=== PATIENT | male | born 1965 | race African-American/Black ===

== ENCOUNTER 2023-08-19 18:26 | Inpatient (IN) | payer OTHER, SELFPAY ==
[2023-08-19] VITALS (7 sets, daily range): BP systolic 125–155; BP diastolic 67–132; BMI 16.8; BMI 16.6
--- NOTE | 2023-08-19 16:30 | ED.GENMED ---
History of Present Illness
General
Chief Complaint: Skin Problem
Time Seen by Provider: 08/19/23 16:29
History of Present Illness
History of Present Illness:
HPI: Patient came in by ambulance. He had been staying at some [facility] called [facility] and then was transferred to [facility]. They noted him to have foul-smelling wounds to the lower extremities. He has a history of
IVDA including heroin, meth, and tranq. He has not had any fevers. He denies diabetes.
EXAM:
GENERAL: Appears poorly groomed
HEENT: Moist oral mucosa
CARDIOVASCULAR: No murmurs, normal heart rate, regular rhythm, No chest wall tenderness
PULMONARY: No respiratory distress, breath sounds are clear and equal
ABDOMEN: Soft with no peritoneal signs, no tenderness
NEUROLOGIC: Excellent strength all extremities, no coordination deficits
PSYCHIATRIC: Appropriate mental status, normal insight and judgement
EXTREMITIES: The patient has markedly foul-smelling wounds with purulent drainage to the distal lower extremities. I was unable to palpate DP pulses but the DP pulses are dopplerable.
TIME OF INITIAL ENCOUNTER: 4:45 PM
NUMBER AND COMPLEXITY OF PROBLEMS ADDRESSED AT THE ENCOUNTER
� Chronic conditions affecting care: Denies diabetes, denies any significant past medical history, IVDA
� Acute Exacerbation and/or Progression of Chronic Illness: This is a subacute problem
� Differential Diagnosis includes: Wound infection, poorly healing wound, undiagnosed diabetes, sepsis
AMOUNT AND/OR COMPLEXITY OF DATA TO BE REVIEWED AND ANALYZED
� I performed an independent evaluation of and my interpretation is:
EKG:
CT:
X-rays:
Laboratory Studies: White count 4.4, hemoglobin 9.9, chemistries relatively unremarkable however low albumin noted
Other:
� Review of other/old records: No old records available for review in [facility]
� Clinical information was obtained by an independent historian: I spoke to [facility] officers at bedside
� Prescriptions/Medications Considered but not given:
� Further testing considered but not performed:
RISK OF COMPLICATIONS AND/OR MORBIDITY OR MORTALITY OF PATIENT MANAGEMENT
� Social determinants of health affecting care: Was supposed to be stay at [facility]
� Discussion with other providers:
� Escalation of care including admission/observation vs risk of discharge considered: The patient is poorly groomed/disheveled with markedly foul-smelling odors to the lower extremities open wounds with purulent drainage. Will
admit for IV antibiotics.
Phy Exam
Physical Exam
Physical Exam:
See HPI
Course
Orders/Labs/Results
Orders:
Orders
08/19/23 16:32
Electrocardiogram (*1) Urgent
Reason for Study: Bradycardia / Tachycardia
EKG- Treatment ONCE
08/19/23 16:33
Complete Blood Count/With Diff Urgent
Comprehensive Metabolic Panel Urgent
Lactic Acid Urgent
08/19/23 16:57
Wound Culture [Wound/Abscess/Other Culture] Urgent
MELANIE Source: Leg
Specimen Description: Right
Date Specimen was Collected: 08/19/23
Time Specimen was Collected: 16:55
08/19/23 17:19
Piperacillin/Tazo 3.375 Gram [Zosyn] 3.375 gram in 50 ml IV NOW
08/19/23 17:48
Admit/Transfer Patient As Directed
Co-Sign Provider:
Level of Care: Inpatient admission
Assign to:: Medical/Surgical
Physician / Group: armando
Diagnosis: lower extremity wounds
Reason for Hospitalization: lower extremity wounds
Expected length of stay greater than two midnights?: Yes
ELOS- Estimated Length of Stay in days: 2
I certify the patient meets the requirements for IP care: Yes
Code Status As Directed
Resuscitation Status: Full Code
08/19/23 17:51
Buprenorphine [Subutex] 4 mg SL Q4HPRN PRN
08/19/23 18:00
VANCOMYCIN Pharmacy to Dose [VANCOCIN Pharmacy to Dose] 1 each Pharmacy To Prepare [Call Pharmacy To Prepare] 0 ml IV PER PROTOCOL
08/20/23 08:00
Buprenorphine [Subutex] 4 mg SL ONCE PRN PRN
Buprenorphine [Subutex] See Dose Instructions SL ONCE ONE
08/21/23 08:00
Buprenorphine [Subutex] See Dose Instructions SL DAILY
Abnormal Lab Results
08/19/23
16:33
WBC 4.4 L 10^3/uL
(4.8-10.8)
RBC 3.89 L 10^6/uL
(4.70-6.10)
Hgb 9.9 L g/dL
(13.0-18.0)
Hct 31.5 L %
(39.0-52.0)
MCH 25.4 L pg
(27.0-31.0)
MCHC 31.4 L g/dL
(33.0-37.0)
RDW 17.1 H %
(11.5-14.5)
Plt Count 427 H 10^3/uL
(130-400)
Carbon Dioxide 31 H mmol/L
(22-30)
AST 16 L U/L
(17-59)
Albumin 3.4 L g/dl
(3.5-5.0)
08/19/23 16:33
08/19/23 16:33
Vital Signs
Initial and Last Documented VS:
Initial Vital Signs
Temp Pulse Resp BP Pulse Ox
99 F 62 15 126/73 100
08/19/23 16:25 08/19/23 16:25 08/19/23 16:25 08/19/23 16:25 08/19/23 16:25
Last Documented Vital Signs
Temp Pulse Resp BP Pulse Ox
99 F 71 17 155/132 100
08/19/23 16:25 08/19/23 18:30 08/19/23 18:30 08/19/23 17:00 08/19/23 17:30
*Critical Care Note
Total Time (30-74mins, 75-104mins- exclusive of procedures): Not Applicable
ED Attending Note
-
Portions of this chart may have been created with voice recognition software.� Occasional wrong word or��sound alike� substitutions may have occurred due to the inherent limitations of voice recognition software.
Discharge Plan
Departure
Patient Disposition: Admit
Date of Disposition: 08/19/23
Time of Disposition: 17:24
Presentation/result/management discussed w/ accepting MD/DO: Hospitalist
Patient with high blood pressure during this ER visit?: Yes
Discharge Problem:
Wound infection
Interventions
Interventions:
*Risk Screen - Suicide Last Done: 08/19/23 16:25
*General Assessment Last Done: 08/19/23 16:25
*Neglect/Abuse Screening Last Done: 08/19/23 16:25
ED-Skin Assessment Last Done: 08/19/23 17:18
[2023-08-19 16:40] LABS: % Basophils 0.5 % (0-2); % Eosinophils 0.9 % (0-6); % Immature Granulocytes 0.5 % (0-0.5); % Lymphocytes 35.2 % (20.5-51.1); % Monocytes 7.4 % (1.7-9.3); % Neutrophils 55.5 % (42.2-75.2); Absolute Lymphocytes 1.6 10^3/uL (1.2-3.4); Absolute Monocytes 0.3 10^3/uL (0.1-0.6); Absolute Neutrophils 2.5 10^3/uL (1.4-6.5); Hematocrit 31.5 % (39.0-52.0); Hemoglobin 9.9 g/dL (13.0-18.0); Mean Corp Hgb Conc. 31.4 g/dL (33.0-37.0); Mean Corpuscular Hgb 25.4 pg (27.0-31.0); Mean Platelet Volume 8.6 fL (7.4-10.4); Nucleated Red Blood Cells % 0 % (-); Platelet Count 427 10^3/uL (130-400); Red Blood Cell Count 3.89 10^6/uL (4.70-6.10); Red Cell Dist. Width 17.1 % (11.5-14.5); White Blood Cell Count 4.4 10^3/uL (4.8-10.8)
[2023-08-19 16:55] LABS: Lactic Acid 1.3 mmol/L (0.7-2.0)
[2023-08-19 16:56] LABS: ALT (SGPT) < 10 U/L (0-50); AST (SGOT) 16 U/L (17-59); Albumin 3.4 g/dl (3.5-5.0); Alkaline Phosphatase 70 U/L (38-126); Blood Urea Nitrogen 19 mg/dl (9-20); Calcium 9.1 mg/dl (8.4-10.2); Carbon Dioxide 31 mmol/L (22-30); Chloride 101 mmol/L (98-107); Glucose 96 mg/dl (70-99); Potassium 4.5 mmol/L (3.5-5.1); Sodium 136 mmol/L (135-145); Total Bilirubin 0.2 mg/dl (0.2-1.3); Total Protein 7.3 g/dl (6.3-8.2); eGFR > 60.00
[2023-08-19] MEDS: ZOSYN 50 IV ×2 (17:30→23:08)
--- NOTE | 2023-08-19 17:51 | HPS.HSE ---
Family Physician
-
Family Physician:
Chief Complaint
-
lower extremity wounds
History of Present Illness
58-year-old male history of drug abuse with smoking heroin, methamphetamine, cocaine presenting from [facility] for foul-smelling wounds of the lower extremities. He states that he has had these wounds for 2 to 3 months with
drainage of purulent material. He has been having chills.
He denies history of IV drug use. He smokes heroin, methamphetamine, cocaine and the last time he used drugs was a week ago. He is a former smoker. He denies alcohol or benzodiazepines. He denies taking any tranquilizers knowingly.
He complains of some nausea, congestion, cough and fatigue. He last smoked opiates/cocaine a week ago. He is supposed to be on Suboxone but he does not know the dosage.
He had prior hip surgery.
Medical History
Past Medical History
Past Medical History: Reports Other (drug abuse with smoking heroin, methamphetamine, cocaine)
Past Surgical History: Reports Orthopedic
Social History
Tobacco: Former Smoker
Alcohol: None
Drug: Cocaine and Narcotics
Family History
Family History: Not pertinent
Allergies / Home Medications
Allergies reflects when Allergies were last updated in [employer].
Home Medications with original date entered in [employer]
Allergy/Medication List:
Allergies
Allergy/AdvReac Type Severity Reaction Status Date / Time
fish derived Allergy Unknown Unknown Verified 08/19/23 16:31
peanut Allergy Unknown Unknown Verified 08/19/23 16:31
Home Medications
No Meds [No Current Medications] 08/19/23
Review of Systems
-
History Source: Patient
A 12 point ROS was completed and negative except as noted: Yes
Constitutional: Reports No Symptoms
EENT: Reports No Symptoms
Respiratory: Reports No Symptoms
Cardiac: Reports No Symptoms
Abdomen/GI: Reports No Symptoms
: Reports No Symptoms
Musculoskeletal: Reports No Symptoms
Skin: Reports No Symptoms
Neurological: Reports No Symptoms
Endocrine: Reports No Symptoms
Hematologic/Lymphatic: Reports No Symptoms
Psych: Reports No Symptoms
Physical Exam
Vital Signs
Vital Signs
Temp Pulse Resp BP Pulse Ox
99 F 65 19 155/132 100
08/19/23 16:25 08/19/23 17:15 08/19/23 17:15 08/19/23 17:00 08/19/23 17:15
Physical Exam
General: Well Developed, Well Nourished and No Apparent Distress
HEENT: NormoCephalic, Moist mucous membranes and Atraumatic
Respiratory: Clear
Cardiac: S1/S2 and Regular Rhythm; No Murmur or Rub
GI: Soft, Non Tender, Non Distended and Normal Bowel Sounds; No Organomegaly
Rectal: Deferred by Provider
Musculoskeletal: No Clubbing, No Cyanosis and No Edema
Skin: No Rash
Neuro: Nonfocal/grossly intact
Laboratory Results
-
08/19/23 16:33
08/19/23 16:33
Laboratory Results
Lactic Acid 1.3 mmol/L (0.7-2.0) 08/19/23 16:33
Total Bilirubin 0.2 mg/dl (0.2-1.3) 08/19/23 16:33
AST 16 U/L (17-59) L 08/19/23 16:33
ALT < 10 U/L (0-50) 08/19/23 16:33
Alkaline Phosphatase 70 U/L (38-126) 08/19/23 16:33
Data Reviewed
-
Lab Data: Labs Reviewed by me
Old Records: Reviewed
Impression/Plan
-
IMPRESSION:
PLAN:
# Likely xylazine induced infected lower extremity wounds
-Wound culture pending
-Vancomycin/Zosyn
-Wound care consulted
-General surgery consulted for potential surgical debridement
# Possible mild opiate withdrawal
# History of drug abuse with heroin, methamphetamines, tranquilizers
-Patient normally on Suboxone however dose unknown
-Opiate withdrawal protocol
Leukopenia unknown chronicity
-Continue to monitor
Anemia unknown chronicity
-Continue to monitor
Full code
DVT prophylaxis heparin
Regular diet
[2023-08-19] MEDS: VANCOCIN 300 MG IV (19:53)
[2023-08-19] MEDS: VANCOCIN 300 ML IV (19:53)
--- NOTE | 2023-08-19 20:37 | PHA.VAN.IN ---
Assessment
- Assessment
Renal Function: Unknown baseline
Concomitant Antimicrobials: ZOSYN
- Previous Dosing Experience
Previous Regimen: NONE
AUC Dosing Plan
- Dosing Variables
Dosing Weight (kg): 79.9
Dosing CrCl (ml/min): 100
Vd coefficient (L/kg): 0.7
- Empiric Dosing
Initial / Loading Dose: 1500MG
Maintenance Regimen: 1250MG IV Q12H
Estimated AUC (mcg*h/mL): 545
Estimated Peak (mcg*h/mL): 34.4
Estimated Trough (mcg/ml): 13.7
Estimated Half Life (H): 7.9
Pharmacokinetics Vancomycin I
- -
Patient Age: 58
Patient Sex: Male
Vancomycin Day #: 1
Indication: Skin And Soft Tissue (LE WOUNDS)
Requesting Provider: JACOB
Height / Weight:
Height 6 ft 1 in
Actual Weight 56.926 kg
IBW in k.9
Pertinent Past Medical History: HX DRUG ABUSE
- Vital Signs / Lab Results
Temp Pulse Resp BP Pulse Ox
97.9 F 69 16 130/73 100
08/19/23 19:23 08/19/23 19:23 08/19/23 19:23 08/19/23 19:23 08/19/23 19:23
Lab Results - Hematology
08/19/23
16:33
WBC 4.4 L
Lab Results - Chemistry
08/19/23
16:33
BUN 19
Creatinine 0.7
Albumin 3.4 L
08/19/23
16:33
Lactic Acid 1.3
Microbiology Results
08/19/23 16:57 Gram Stain - Preliminary
Leg - Right
[2023-08-19] MEDS: HEPARIN 5000 UNITS SC (21:03)
[2023-08-20] MEDS: ZOSYN 50 IV ×3 (05:25→18:34)
[2023-08-20] MEDS: VANCOCIN 275 MG IV ×2 (05:32→17:04)
[2023-08-20 07:00] VITALS: BP 125/82
[2023-08-20] MEDS: HEPARIN 5000 UNITS SC ×2 (08:32→19:36)
--- NOTE | 2023-08-20 09:26 | W.PN.HOSP.TC ---
Addendum entered and electronically signed by Porter More MD 08/20/23 23:28:
Attending Addendum-
I saw and evaluated the patient. I reviewed the resident�s note and agree with findings and plan as documented in the resident�s note. Sub: patient complains of sig pain in b/l LE. tearing op. Full 12 point ROS reviewed and negative except as
documented Exam: Vitals reviewed in chart GEN-mild distress heart RRR lungs clear abd soft Ext-Left lower extremity over the medial tibial area there is a area of granulation tissue without devitalized tissue or necrosis and no surrounding
cellulitis, right medial thigh there are multiple oval-shaped granulating wounds without purulence, necrosis or cellulitis In the right medial tibial region there are multiple smaller open wounds with purulence and sloughing but no fluctuance. 2+
palpable bilateral DP PT pulses
# Likely xylazine induced infected lower extremity wounds
-Wound culture - GBS and GNB - await sensitivities
-Vancomycin/Zosyn day # 2
-Anaerobic wound cx sent 08/19- follow closely
-Wound care on board
-General surgery input appreciated- no indication for surgical debridement
# Possible mild opiate withdrawal
- PDMP checked
- last script suboxone 8mg given 08/02 x 7 days
- start Subutex 8mg PO TID
- f/u suboxone clinic as OP
-
# History of drug abuse with heroin, methamphetamines, tranquilizers
-Patient normally on Suboxone
-Opiate withdrawal protocol (COWS)
- start subutex per previous dose
- check hep c ab
Leukopenia unknown chronicity
-Continue to monitor
- repeat CBC in am
Anemia unknown chronicity
-Continue to monitor
Full code
DVT prophylaxis heparin
Regular diet
Time spent coordinating care, review of plan of care with resident, personally reviewed records in EMR, med rec, consults, notes, labs, radiology, d/w nursing � 56 mins
Original Note:
Today's Communication/Plan
-
- Continue Vanco/zosyn
- Oxy�APAP 5/325 Q8 as needed for pain
Assessment / Plan
Assessment / Plan
PLAN:
# Likely xylazine induced infected b/l lower extremity wounds
-Wound culture + group G Streptococcus, gram-negative bacilli
-MRSA pending
-Continue vancomycin/Zosyn
-Wound care consulted
-Hep C antibody, pending
-UDS negative
-Anaerobic culture pending
-Surgery recommended against debridement at this time
# Possible mild opiate withdrawal
- History of drug abuse with heroin, methamphetamines, tranquilizers
- Opiate withdrawal protocol
Leukopenia unknown chronicity
-Continue to monitor
Anemia unknown chronicity
-Continue to monitor
Full code
DVT prophylaxis heparin
Regular diet
Anticipated Discharge: 24 - 48 hours
Subjective/Interval History
-
Date of Service: August 20, 2023
Objective Data
-
Labs:
Laboratory Results
08/20/23
06:00
WBC Pending
Hgb Pending
Hct Pending
Plt Count Pending
Sodium Pending
Potassium Pending
Chloride Pending
Carbon Dioxide Pending
BUN Pending
Creatinine Pending
Glucose Pending
Calcium Pending
Total Bilirubin Pending
AST Pending
ALT Pending
Alkaline Phosphatase Pending
Vital Signs:
Vital Signs
Temp Pulse Resp BP Pulse Ox
98.3 F 62 16 125/82 98
08/20/23 07:00 08/20/23 07:00 08/20/23 07:00 08/20/23 07:00 08/20/23 07:00
I&O
08/19/23 08/20/23 08/21/23
06:59 06:59 06:59
Intake Total 1395 / 1395
Output Total 1300 / 1300
Balance 95 / 95
Review of Systems
-
History Source: Patient
Constitutional: Denies Fever
Respiratory: Denies Cough
Cardiac: Denies Chest Pain
Abdomen/GI: Denies Abdominal Pain
Musculoskeletal: Denies Joint Pain
Physical Exam
-
General: Appears in Distress and Appears Chronically Ill
HEENT: Atraumatic
Respiratory: Clear to Auscultation
Cardiac: Regular Rhythm and S1/S2
Musculoskeletal: Other (chronic wounds on both LE)
Neuro: Awake and Oriented
Psych: Calm
Data Reviewed
-
Labs: Labs Reviewed by me and Discussed with Physician
[2023-08-20 10:15] LABS: % Basophils 0.4 % (0-2); % Eosinophils 0.7 % (0-6); % Immature Granulocytes 0.4 % (0-0.5); % Lymphocytes 37.7 % (20.5-51.1); % Neutrophils 51.8 % (42.2-75.2); Absolute Lymphocytes 1.7 10^3/uL (1.2-3.4); Absolute Monocytes 0.4 10^3/uL (0.1-0.6); Absolute Neutrophils 2.4 10^3/uL (1.4-6.5); Hematocrit 31.2 % (39.0-52.0); Hemoglobin 10.2 g/dL (13.0-18.0); Mean Corp Hgb Conc. 32.7 g/dL (33.0-37.0); Mean Corpuscular Hgb 25.4 pg (27.0-31.0); Mean Corpuscular Volume 77.8 fL (80.0-94.0); Mean Platelet Volume 8.5 fL (7.4-10.4); Nucleated Red Blood Cells % 0 % (-); Platelet Count 484 10^3/uL (130-400); Red Blood Cell Count 4.01 10^6/uL (4.70-6.10); Red Cell Dist. Width 17.2 % (11.5-14.5); White Blood Cell Count 4.6 10^3/uL (4.8-10.8)
[2023-08-20 11:09] LABS: ALT (SGPT) < 10 U/L (0-50); AST (SGOT) 16 U/L (17-59); Albumin 3.2 g/dl (3.5-5.0); Alkaline Phosphatase 75 U/L (38-126); Blood Urea Nitrogen 13 mg/dl (9-20); Carbon Dioxide 27 mmol/L (22-30); Chloride 99 mmol/L (98-107); Estimated Creatinine Clearance 91 ml/min; Glucose 106 mg/dl (70-99); Potassium 4.4 mmol/L (3.5-5.1); Sodium 132 mmol/L (135-145); Total Bilirubin 0.2 mg/dl (0.2-1.3); Total Protein 7.2 g/dl (6.3-8.2); eGFR > 60.00
--- NOTE | 2023-08-20 12:06 | CON.GS ---
Addendum entered and electronically signed by Bj Christina MD 08/20/23 18:30:
Patient seen and examined this a.m. with nurse practitioner. This is a delayed medical entry.
Agree with documented consultation note consistent with my simultaneous evaluation and examination.
Patient is a 58-year-old male with reported history of polysubstance abuse brought in from correctional facility for evaluation of lower extremity wounds. Patient does not provide details of history other than stating that these wounds have been
present for a long time. He denies injecting into the sites. He denies any prior surgical interventions in this region for the wounds.
AFVSS
Left lower extremity over the medial tibial area there is a area of granulation tissue without devitalized tissue or necrosis and no surrounding cellulitis
Over the right medial thigh there are multiple oval-shaped granulating wounds without purulence, necrosis or cellulitis
In the right medial tibial region there are multiple smaller open wounds with purulence and sloughing but no fluctuance.
2+ palpable bilateral DP PT pulses
Assessment/plan 58-year-old male with multiple lower extremity wounds.
The larger wounds overlying the right medial thigh and left tibial region are completely clean and granulating. There is no devitalized or necrotic tissue. There is no purulence. There is no detectable undrained collections. No role for surgical
debridement. Local wound care only which would consist of a nonadherent dressing change twice daily and cleansing the region to keep clean.
While there is some purulence emanating from the right tibial and proximal foot wounds there is no fluctuance and there is some sloughing. Would recommend local wound care with Santyl and wet-to-dry dressings packing twice daily.
Defer further workup to primary service. Consideration could be given to MRI of right lower extremity if felt would be necessary to further evaluate for underlying osteomyelitis.
Surgery will be signing off. Please call if can be of further assistance with care.
Original Note:
Consultation
-
Date/Time Consultation Requested: 08/19/23 [id number]
Reason for Consultation: xylazine lower ex wounds
Medical History
-
Chief Complaint: LE wounds
History of Present Illness:
Mr Holden is a 58 yo male with a long history of polysubstance abuse brought in by the [facility]'s department for evaluation of LE wounds. There are multiple wounds to the bilateral lower extremities in various stages of healing. He reports that he has
had these wound for the last 2-3 months. Although these do have the appearance of injection site wounds, the patient denies injecting at these sites. There are officers at bedside. To the left lower calf there is a nonpurulent oval granulating wound
about 2.5'' wide without purulence. There are similar oval shaped wound tracking up the right thigh, also granulating and without purulence. Over the tibia on the right gann there are several scattered partial thickness open wounds with purulence
noted and slough in the wound bed. He notes pain to all these wounds, but was agreeable to dressing changes. Pulses to BLLE are strong bilaterally. He denies fevers or chills and has been afebrile since presentation.
Past Medical History
Past Medical History: Other (Polysubstance abuse)
Past Surgical History: Orthopedic (to right leg as a child)
Social History
Tobacco: Former Smoker
Drug: Cocaine, Narcotics and Other (Heroin)
Living: Other ([facility])
Family History
Family History: Reviewed & Not Pertinent
Allergies / Home Medications
Allergy/AdvReac Type Severity Reaction Status Date / Time
fish derived Allergy Unknown Verified 08/19/23 18:28
peanut Allergy Unknown Verified 08/19/23 18:28
�Medication �Instructions �Recorded �Confirmed �Type
No Meds [No Current Medications] 08/19/23 08/19/23 History
Review of Systems
-
History Source: Patient and Family
All other systems: Negative unless noted
A 10 point review of systems was completed, and was negative except as per HPI.
Physical Exam
Vital Signs
Temp Pulse Resp BP Pulse Ox
98.3 F 62 16 125/82 98
08/20/23 07:00 08/20/23 07:00 08/20/23 07:00 08/20/23 07:00 08/20/23 07:00
08/19/23 08/20/23 08/21/23
06:59 06:59 06:59
Actual Weight 56.926 kg
Body Mass Index (BMI) 16.6
Lab Results
08/20/23 09:53
08/20/23 09:53
WBC 4.6 10^3/uL (4.8-10.8) L 08/20/23 09:53
Hgb 10.2 g/dL (13.0-18.0) L 08/20/23 09:53
Hct 31.2 % (39.0-52.0) L 08/20/23 09:53
Plt Count 484 10^3/uL (130-400) H 08/20/23 09:53
Abs Immat Gran (auto) 0.0 10^3/uL (0-0.05) 08/20/23 09:53
Neutrophils % 51.8 % (42.2-75.2) 08/20/23 09:53
Physical Exam
General: Well Developed and Well Nourished
HEENT: Moist Mucous Membranes
Respiratory: Non Labored Respirations
GI: Soft, Non Tender and Non Distended
Skin: Warm and Other (Left calf/gann with open granulating wound, non-purulent. Right thigh with multiple open granulating wounds, non-purulent. Right gann/calf with several purulent wounds with slough to wound bed, shallow.)
Neuro: Awake, Alert and AO x 3
Psych: Calm
Assessment / Plan
-
58 yo male with a h/o polysubstance abuse brought in by [facility]'s department for evaluation of purulent wounds. Afbrile and without leukocytosis. Pulses strong. Wounds to right thigh and left gann/calf without signs of infection with purulence noted
to wounds of the right gann/calf.
--No plans for surgical debridement at this time
--Local wound care with Santyl ointment BID to purulent wounds and adaptic dressing to nonpurulent areas
--Wound cx collected in ED with gram neg bacilli and strep species noted on preliminary results, anaerobic cultures collected today with dressing changes
--ABX as per primary team
[2023-08-20] MEDS: TYLENOL 650 MG PO ×2 (13:04→19:58)
--- NOTE | 2023-08-20 13:49 | PHA.VAN.FU ---
Vancomycin Assessment / Plan
- Assessment
Renal Function: Stable (0.7>0.7)
WBC's are: Stable (4.4>4.6 (Slight increase))
In the past 24 hrs, patient has been: Afebrile
Concomitant Antimicrobials: Piperacillin-tazobactam
- Dosing Plan
Continue: Vancomycin 1250mg IV Q12hrs
- Monitoring Plan
No level(s) ordered at this time: Will order levels according to vancomycin dosing protocol
- Follow Up
Pharmacy will continue to follow.
Vancomycin Follow UP
- -
Patient Age: 58
Patient Sex: Male
Vancomycin Day #: 2
Indication: Skin And Soft Tissue (LE WOUNDS)
Requesting Provider: JACOB
Height / Weight:
Height 6 ft 1 in
Actual Weight 56.926 kg
IBW in k.9
Pertinent Past Medical History: HX DRUG ABUSE
- Vital Signs / Lab Results
Temp Pulse Resp BP Pulse Ox
98.3 F 62 16 125/82 98
08/20/23 07:00 08/20/23 07:00 08/20/23 07:00 08/20/23 07:00 08/20/23 07:00
Lab Results - Hematology
08/19/23 08/20/23
16:33 09:53
WBC 4.4 L 4.6 L
Lab Results - Chemistry
08/19/23 08/20/23
16:33 09:53
BUN 19 13
Creatinine 0.7 0.7
Estimated Creat Clear 91
Albumin 3.4 L 3.2 L
08/19/23
16:33
Lactic Acid 1.3
Microbiology Results
08/19/23 16:57 Wound Culture - Preliminary
Leg - Right Group G Streptococcus
Gram negative bacilli
Gram Stain - Preliminary
[2023-08-20 14:00] LABS: Amphetamines Negative (Negative); Barbiturates Negative (Negative); Benzodiazepines Negative (Negative); Buprenorphine Negative (Negative); Cocaine Negative (Negative); Marijuana Negative (Negative); Methadone Negative (Negative); Methamphetamines Negative (Negative); Opiates Negative (Negative); Phencyclidine Negative (Negative); Tricyclic Antidepressants Negative (Negative)
[2023-08-20 15:16] VITALS: BP 112/73
[2023-08-20 15:24] VITALS: BMI 16.6
--- NOTE | 2023-08-20 15:59 | CM ---
Pt is with 2 guards. Spoke with Jaspreet at [facility] he said pt was received at [facility] and sent to . They do not have history on him. Spoke with guard He uses a walker. He is here with wound.Spoke with Admission to make him confidential and to check if
insurance should be under [facility].Also address should be changed to [facility].
Pharmacy CPS
PCP DR Crowley
[facility]
report [phone]
fax [phone]
PLAN Return [facility] with guards
[2023-08-20] MEDS: SANTYL OINTMENT 1 APPLIC TOPICAL (19:36)
[2023-08-20 23:00] VITALS: BP 124/53
[2023-08-21] MEDS: ZOSYN 50 IV ×3 (00:10→11:43)
[2023-08-21] MEDS: SUBUTEX 8 MG SL ×4 (00:59→23:46)
[2023-08-21] MEDS: VANCOCIN 275 MG IV (05:34)
[2023-08-21 05:59] LABS: % Immature Granulocytes 0.4 % (0-0.5); % Lymphocytes 42.8 % (20.5-51.1); % Monocytes 8.2 % (1.7-9.3); % Neutrophils 46.6 % (42.2-75.2); Absolute Basophils 0.1 10^3/uL (0-0.2); Absolute Eosinophils 0.1 10^3/uL (0-0.7); Absolute Lymphocytes 2.1 10^3/uL (1.2-3.4); Absolute Monocytes 0.4 10^3/uL (0.1-0.6); Absolute Neutrophils 2.3 10^3/uL (1.4-6.5); Hematocrit 30.6 % (39.0-52.0); Hemoglobin 9.9 g/dL (13.0-18.0); Mean Corp Hgb Conc. 32.4 g/dL (33.0-37.0); Mean Corpuscular Hgb 25.5 pg (27.0-31.0); Mean Corpuscular Volume 78.9 fL (80.0-94.0); Mean Platelet Volume 8.5 fL (7.4-10.4); Nucleated Red Blood Cells % 0 % (-); Platelet Count 470 10^3/uL (130-400); Red Blood Cell Count 3.88 10^6/uL (4.70-6.10); Red Cell Dist. Width 17.5 % (11.5-14.5); White Blood Cell Count 4.9 10^3/uL (4.8-10.8)
[2023-08-21 06:26] LABS: ALT (SGPT) < 10 U/L (0-50); AST (SGOT) 16 U/L (17-59); Albumin 3.1 g/dl (3.5-5.0); Alkaline Phosphatase 66 U/L (38-126); Blood Urea Nitrogen 16 mg/dl (9-20); Calcium 8.9 mg/dl (8.4-10.2); Carbon Dioxide 28 mmol/L (22-30); Chloride 100 mmol/L (98-107); Estimated Creatinine Clearance 80 ml/min; Glucose 88 mg/dl (70-99); Sodium 133 mmol/L (135-145); Total Bilirubin 0.3 mg/dl (0.2-1.3); Total Protein 6.8 g/dl (6.3-8.2); eGFR > 60.00
[2023-08-21 07:00] VITALS: BP 105/60
[2023-08-21] MEDS: HEPARIN 5000 UNITS SC ×2 (08:41→20:50)
[2023-08-21] MEDS: PERCOCET 5/325 1 TABLET PO ×2 (08:48→16:51)
--- NOTE | 2023-08-21 09:27 | W.PN.HOSP.TC ---
Addendum entered and electronically signed by Porter More MD 08/22/23 00:14:
Attending Addendum-
I saw and evaluated the patient. I reviewed the resident�s note and agree with findings and plan as documented in the resident�s note. Sub: pain in LE greatly improved. Patient more alert today. Denies fevers chills diarrhea, Full 12 point ROS
reviewed and negative except as documented Exam: Vitals reviewed in chart GEN-mild distress heart RRR lungs clear abd soft Ext-Left lower extremity over the medial tibial area there is a area of granulation tissue without devitalized tissue or
necrosis and no surrounding cellulitis, right medial thigh there are multiple oval-shaped granulating wounds without purulence, necrosis or cellulitis In the right medial tibial region there are multiple smaller open wounds with purulence and
sloughing but no fluctuance. 2+ palpable bilateral DP PT pulses
# Xylazine induced infected lower extremity wounds
-Wound culture - GBS and GNB - sens to augmentin
-DC Vancomycin/Zosyn- narrow to Unasyn overall day #3 of abx
-Anaerobic wound cx sent 08/19- P- follow closely
-Wound care on board
-General surgery input appreciated- no indication for surgical debridement
# Opiate withdrawal
- PDMP reviewed
- last script suboxone 8mg given 08/02 x 7 days
- cont Subutex 8mg PO TID
- f/u suboxone clinic as OP
-
# History of drug abuse with heroin, methamphetamines, tranquilizers
-Patient normally on Suboxone
-DC Opiate withdrawal protocol (COWS)
- start subutex per previous dose
- check hep c ab-P
# Mild Hyponatremia-
- likely hypovolemic
- repeat BMP in am
# Leukopenia unknown chronicity
- resolved
- repeat CBC in am
# Anemia unknown chronicity
- Continue to monitor
- Hb stable
Full code
DVT prophylaxis heparin
Regular diet
Dispo in 24 to 48 hours
Time spent coordinating care, review of plan of care with resident, personally reviewed records in EMR, med rec, consults, notes, labs, radiology, d/w nursing jose david and KASEY'kaley� 58 mins
Original Note:
Today's Communication/Plan
-
- d/c vanco/zosyn
- start unasyn
- continue subutex q8
Assessment / Plan
Assessment / Plan
58-year-old male with past medical history of IV drug abuse presented with probable swelling�purulent wound on both lower extremities.
# Likely xylazine induced infected b/l lower extremity wounds
-Wound culture: + group G Streptococcus, + Proteus Mirabilis
-MRSA negative
-d/c Vanco and Zosyn
- Start Unasyn
-Wound care consulted
-Hep C antibody, pending
-UDS negative
-Anaerobic culture pending
-Surgery recommended against debridement at this time
-local wound care with Santyl and wet-to-dry dressings packing twice daily.
# Possible mild opiate withdrawal/ History of drug abuse
- History of drug abuse with heroin, methamphetamines, tranquilizers
- Opiate withdrawal protocol
- Continue Subutex p.o. 3 times daily
# Leukopenia unknown chronicity
-Continue to monitor
# Anemia unknown chronicity
-Continue to monitor
Full code
DVT prophylaxis heparin
Regular diet
Anticipated Discharge: 24 - 48 hours
Subjective/Interval History
-
Date of Service: August 21, 2023
Objective Data
-
Labs:
Laboratory Results
08/21/23
05:23
WBC 4.9
Hgb 9.9 L
Hct 30.6 L
Plt Count 470 H
Sodium 133 L
Potassium 5.0
Chloride 100
Carbon Dioxide 28
BUN 16
Creatinine 0.8
Glucose 88
Calcium 8.9
Total Bilirubin 0.3
AST 16 L
ALT < 10
Alkaline Phosphatase 66
Vital Signs:
Vital Signs
Temp Pulse Resp BP Pulse Ox
97.8 F 63 16 105/60 100
08/21/23 07:00 08/21/23 07:00 08/21/23 07:00 08/21/23 07:00 08/21/23 07:00
I&O
08/20/23 08/21/23 08/22/23
06:59 06:59 06:59
Intake Total 1395 / 1395 1950 / 1950
Output Total 1300 / 1300 2049
Balance 95 / 95 -100 / -100
Review of Systems
-
History Source: Patient
Constitutional: Denies Fever
Respiratory: Denies Cough
Cardiac: Denies Chest Pain
Abdomen/GI: Denies Abdominal Pain
Musculoskeletal: Denies Joint Pain
Hematologic / Lymphatic: Denies Bleeding
Physical Exam
-
General: No Apparent Distress
HEENT: Normocephalic and Atraumatic
Respiratory: Clear to Auscultation
Cardiac: Regular Rhythm
GI: Soft and Nontender
Musculoskeletal: Other (Ulcers b/l LE near distal medial tibia)
Neuro: Awake, Alert and Oriented
Psych: Calm
Data Reviewed
-
Labs: Labs Reviewed by me, Discussed with Physician and Discussed with Patient
[2023-08-21] MEDS: SANTYL OINTMENT 1 APPLIC TOPICAL ×2 (11:42→20:50)
--- NOTE | 2023-08-21 12:55 | PHA.VAN.FU ---
Vancomycin Assessment / Plan
- Assessment
Renal Function: SCR Increasing (0.7>0.8)
WBC's are: Trending Up (4.6>4.9)
In the past 24 hrs, patient has been: Afebrile
Concomitant Antimicrobials: Piperacillin-tazobactam
- Dosing Plan
Continue: Vancomycin 1250mg IV Q12 hrs
- Monitoring Plan
Peak Level: Ordered for 08/21/23 at 21:00
Trough Level: Ordered for 08/22/23 at 05:30
- Follow Up
Pharmacy will continue to follow.
Vancomycin Follow UP
- -
Patient Age: 58
Patient Sex: Male
Vancomycin Day #: 3
Indication: Skin And Soft Tissue (LE WOUNDS)
Requesting Provider: JACOB
Height / Weight:
Height 6 ft 1 in
Actual Weight 56.926 kg
IBW in k.9
Pertinent Past Medical History: HX IV DRUG ABUSE
- Vital Signs / Lab Results
Temp Pulse Resp BP Pulse Ox
97.8 F 63 16 105/60 100
08/21/23 07:00 08/21/23 07:00 08/21/23 07:00 08/21/23 07:00 08/21/23 07:00
Lab Results - Hematology
08/19/23 08/20/23 08/21/23
16:33 09:53 05:23
WBC 4.4 L 4.6 L 4.9
Lab Results - Chemistry
08/19/23 08/20/23 08/21/23
16:33 09:53 05:23
BUN 19 13 16
Creatinine 0.7 0.7 0.8
Estimated Creat Clear 91 80
Albumin 3.4 L 3.2 L 3.1 L
08/19/23
16:33
Lactic Acid 1.3
Microbiology Results
08/20/23 11:30 Anaerobic Culture - Preliminary
Leg - Right Culture pending. Anaerobic cultures are examined after 3
days incubation. Additional information to follow.
08/19/23 16:57 Wound Culture - Final
Leg - Right Proteus mirabilis
Group G Streptococcus
Gram Stain - Final
08/19/23 20:01 MRSA Screen - Final
Nose No Methicillin Resistant Staphylococcus aureus isolated.
[2023-08-21 15:00] VITALS: BP 99/62
[2023-08-21] MEDS: UNASYN IV ×2 (18:08→23:46)
[2023-08-21 23:14] VITALS: BP 105/57
[2023-08-21] MEDS: FLUSH (NSS) 2 FLUSH IV (23:47)
[2023-08-22] MEDS: PERCOCET 5/325 1 TABLET PO ×2 (03:41→13:57)
[2023-08-22] MEDS: UNASYN IV ×3 (05:47→17:14)
[2023-08-22] MEDS: FLUSH (NSS) 2 FLUSH IV (05:49)
[2023-08-22 06:22] LABS: % Basophils 0.5 % (0-2); % Eosinophils 1.5 % (0-6); % Immature Granulocytes 0.9 % (0-0.5); % Lymphocytes 40.8 % (20.5-51.1); % Monocytes 8.9 % (1.7-9.3); % Neutrophils 47.4 % (42.2-75.2); Absolute Eosinophils 0.1 10^3/uL (0-0.7); Absolute Immature Granulocytes 0.1 10^3/uL (0-0.05); Absolute Lymphocytes 2.3 10^3/uL (1.2-3.4); Absolute Monocytes 0.5 10^3/uL (0.1-0.6); Absolute Neutrophils 2.6 10^3/uL (1.4-6.5); Hematocrit 28.1 % (39.0-52.0); Hemoglobin 9.1 g/dL (13.0-18.0); Mean Corp Hgb Conc. 32.4 g/dL (33.0-37.0); Mean Corpuscular Hgb 25.9 pg (27.0-31.0); Mean Corpuscular Volume 79.8 fL (80.0-94.0); Mean Platelet Volume 8.4 fL (7.4-10.4); Nucleated Red Blood Cells % 0 % (-); Platelet Count 449 10^3/uL (130-400); Red Blood Cell Count 3.52 10^6/uL (4.70-6.10); Red Cell Dist. Width 17.9 % (11.5-14.5); White Blood Cell Count 5.5 10^3/uL (4.8-10.8)
[2023-08-22 06:39] LABS: Blood Urea Nitrogen 18 mg/dl (9-20); Calcium 8.9 mg/dl (8.4-10.2); Carbon Dioxide 27 mmol/L (22-30); Chloride 106 mmol/L (98-107); Estimated Creatinine Clearance 80 ml/min; Glucose 85 mg/dl (70-99); Potassium 4.8 mmol/L (3.5-5.1); Sodium 138 mmol/L (135-145); eGFR > 60.00
[2023-08-22 07:00] VITALS: BP 113/58
[2023-08-22] MEDS: HEPARIN 5000 UNITS SC (07:57)
[2023-08-22] MEDS: SUBUTEX 8 MG SL ×2 (07:57→16:26)
[2023-08-22] MEDS: SANTYL OINTMENT 1 APPLIC TOPICAL (08:01)
--- NOTE | 2023-08-22 09:03 | W.PN.HOSP.TC ---
Addendum entered and electronically signed by Maxwell Colon MD 08/23/23 14:20:
Add on to diagnosis list with CDI query:
Underweight - BMI 16.6
Addendum entered and electronically signed by Maxwell Colon MD 08/22/23 17:44:
I saw and evaluated the patient. I reviewed the resident�s note and agree with findings and plan as documented in the resident�s note.
1. Lower extremity wound from xylazine/IV substance use
-Wound culture growing Proteus mirabilis and group G Streptococcus
-Superficial wound in nature and wound care recommended
-General surgery evaluated and no indication for any surgical intervention
-Tibia/fibula x-ray images reviewed no osteomyelitis in my opinion official read pending.
-Based on susceptibility providing patient 5 days of oral Augmentin at discharge
-Continue local wound care and correction facility
-Unfortunately of high risk for nonhealing wound and further complication
2. Opiate withdrawal -ruled out
-Patient was getting buprenorphine and correctional facility, to be continued per correctional facility physician recommendation
-Not requiring any oral pain medication in hospital
-Urine drug screen is negative
Patient is cleared for incarceration at this point.
Patient will require to continue having wound care as provided in discharge instruction.
Original Note:
Today's Communication/Plan
-
- continue Augmentin for 5 days
-Follow-up with Suboxone clinic outpatient
Assessment / Plan
Assessment / Plan
58-year-old male with past medical history of IV drug abuse presented with probable swelling�purulent wound on both lower extremities.
# Likely xylazine induced infected b/l lower extremity wounds
-Wound culture: + group G Streptococcus, + Proteus Mirabilis
-MRSA negative
-d/c Vanco and Zosyn
-d/c Unasyn- converted to augmentin PO
-Hep C antibody, pending
-UDS negative
-Anaerobic culture pending
-Surgery recommended against debridement at this time
-local wound care with Santyl and wet-to-dry dressings packing twice daily.
-Xray : unremarkable. no sign of osteomyelitis
# Possible mild opiate withdrawal/ History of drug abuse
- History of drug abuse with heroin, methamphetamines, tranquilizers
-Follow-up Suboxone clinic as outpatient
# Leukopenia unknown chronicity
-Continue to monitor
# Anemia unknown chronicity
-Continue to monitor
Full code
DVT prophylaxis heparin
Regular diet
Anticipated Discharge: Today
Subjective/Interval History
-
Date of Service: August 22, 2023
Objective Data
-
Labs:
Laboratory Results
08/22/23
05:55
WBC 5.5
Hgb 9.1 L
Hct 28.1 L
Plt Count 449 H
Sodium 138
Potassium 4.8
Chloride 106
Carbon Dioxide 27
BUN 18
Creatinine 0.8
Glucose 85
Calcium 8.9
Vital Signs:
Vital Signs
Temp Pulse Resp BP Pulse Ox
97.8 F 60 17 113/58 96
08/22/23 07:00 08/22/23 07:00 08/22/23 07:00 08/22/23 07:00 08/22/23 07:00
I&O
08/21/23 08/22/23 08/23/23
06:59 06:59 06:59
Intake Total 1950 / 1949 1080 / 1080
Output Total 2049 900 / 900
Balance -100 / -100 180 / 180
Review of Systems
-
History Source: Patient
Constitutional: Denies Fever
Respiratory: Denies Cough
Cardiac: Denies Chest Pain
Abdomen/GI: Denies Abdominal Pain
Musculoskeletal: Denies Joint Pain
Hematologic / Lymphatic: Denies Bleeding
Physical Exam
-
General: Well Nourished and No Apparent Distress
HEENT: Normocephalic and Atraumatic
Cardiac: Regular Rhythm and S1/S2
Skin: Warm
Psych: Calm
Data Reviewed
-
Labs: Labs Reviewed by me, Discussed with Physician and Discussed with Patient
--- NOTE | 2023-08-22 11:36 | WOUNDNOTE ---
R LOWER LEG AND ANTERIOR ANKLE
--- NOTE | 2023-08-22 11:37 | WOUNDNOTE ---
L MEDIAL LOWER LEG
--- NOTE | 2023-08-22 11:40 | WOUNDNOTE ---
VIANEY RN note: Patient admitted with wound infection on legs.
See H&P for complete history. Currently at [facility].
PMH: IVDA, smoker and wounds on legs for 2-3 months.
Wound Location and type/assessment: Patient admitted with: Full thickness wounds on legs, patient claims are not from injecting drugs. Patient reports he does not know how he got these wounds they just gradually appeared. Reviewed surgical reports,
agree wounds mostly clean. R lower leg and ankle wounds with some monroy slough, remainder of wounds pink and healthy appearing. Toe nails very dry and long, skin on legs dry and flaky. Heels & sacrum intact.
Appetite: Good, encouraged protein in diet.
Pressure redistribution devices in place: On versa care air bed, can turn self.
Plan: Santyl to R lower leg wounds only, remainder of wounds adaptic and dry dressing daily.
Will confirm orders with hospitalist and updated nurse Gen. Updated care plan and will follow as needed.
Note to case management of equipment requested for discharge: If possible podiatry for nail care.
[2023-08-22 14:52] VITALS: BP 112/74
--- NOTE | 2023-08-22 16:46 | W.DCSUMMARY ---
Addendum entered and electronically signed by Maxwell Colon MD 08/23/23 14:14:
Read, reviewed, and agree. See same day progress note for additional details. Time spent coordinating care, DC planning, review of DC plan of care with resident, transition of care, review of records in EMR, med rec, consults, notes, d/w
consultants, nursing, family, and CM 40 mins
Original Note:
Discharge Summary
Discharge Data
Date of Admission: 08/19/23
Date of Discharge: 08/22/23
-
Pending Results: Yes
Additional Pending Results:
Pending: Anaerobic culture, hep C antibody
Hospital Course
Discharging Physician : Frank Bernstein MD ; Maxwell Colon MD
Disposition : Snf
Primary care physician : N/A
Principal Discharge diagnosis : Xylazine induced infected lower extremity wounds
Chronic Discharge diagnosis : History of drug abuse ( heroin, methamphetamines, tranquilizers), Anemia unknown chronicity
Hospital Course : 58-year-old male with history of drug abuse presented to the ER from [facility] with foul-smelling wounds of the lower extremity. He was started on vancomycin/Zosyn. Wound care and general surgery was
consulted. Surgery did not recommend any surgical intervention at this time. Wound culture and MRSA screen was performed. MRSA came back negative and vancomycin was discontinued. Wound culture showed group G strep, Proteus Mirabilis and he was
put on IV Amoxicillin/sulbactam. Subutex 8 mg every 8 hour was also given after reviewing the PDMP. X-ray tibia/fibula did not show any abnormalities at this time. He is being discharged on p.o. Augmentin for 5 days. Recommended to follow-up
with Suboxone clinic as outpatient
Important imaging findings : EKG: Normal sinus rhythm
Discharge Plan
-
Patient Disposition: Snf
Discharge Diagnosis/Procedures: Xylazine induced infected lower extremity wounds, History of drug abuse with heroin, methamphetamines, tranquilizers,Anemia unknown chronicity, Leukopenia unknown chronicity
Condition: Good
Diet: No restrictions
Activity: No restrictions
Driving Restrictions: As prior to admission
Bathing Restrictions: OK to Shower
Wound Care: wound care with Santyl and wet-to-dry dressings packing twice daily.
Activity Restrictions/Additional Instructions:
Wound Care Instructions
R lower leg only: clean with saline, Santyl once a day then adaptic, gauze and aniyah.
R medial thigh and L lower leg: clean with saline, adaptic and dry dressing daily and prn drainage.
Follow up with [employer] if possible for toe nail care.
Referrals:
NONE,* [Family Provider] -
Additional Discharge Medication Instructions: Take Augmentin by mouth twice daily for 5 days�last dose should be 08/27/2023
Prescriptions:
No Action
No Current Medications
0
Discharge Orders:
Discharge Patient (As Directed); Ordered 08/22/23
Ordered By: Frank Bernstein
Discharge Date and Time
Print Language: ITALIAN
[2023-08-22 19:43] LABS: Hepatitis C Antibody Negative (Negative)
--- NOTE | 2023-08-23 09:19 | PN.CDI ---
CDI
- -
CDI:
Physician Documentation Request
Admit Date: 08/19/23 18:[address] Bernstein/Dr Colon,
Clinical Indicators:
Patient admitted lower extremity wound from xylazine/IV substance use.
Height: 6 ft 1 in
Weight: 125 lbs 8 oz
BMI: 16.6
08/21 note, 'CBW 125lbs 8 oz (BMI16.6-underweight)'
If possible, please provide an associated diagnosis related to the abnormal BMI (< or = to 19.9) such as:
Underweight
BMI is not significant
Other, please specify
Use of terms such as suspected, likely, concern for, or probable (associated with a specific diagnosis that is being evaluated, monitored, or treated as if it exists) are acceptable and can be coded in the inpatient setting, when documented at the
time of discharge.
Thank you,
RAUL Valles RN
CDI Specialist
available via tiger text
Please use your independent medical judgment in providing your response.
== END 2023-08-22 18:19 | DRG 593 ==
LOC: 3 WEST ACU 18:26
PROVIDERS: ADMITTING PHYSICIAN Hospitalist; ATTENDING PHYSICIAN Hospitalist; CONSULT PHYSICIAN Surgery; EMERGENCY PHYSICIAN Emergency Medicine
DX: L97.228 Non-pressure chronic ulcer of left calf with other specified severity (principal); E87.1 Hypo-osmolality and hyponatremia; Z68.1 Body mass index [BMI] 19.9 or less, adult; L97.218 Non-pressure chronic ulcer of right calf with other specified severity; L08.89 Other specified local infections of the skin and subcutaneous tissue; D72.829 Elevated white blood cell count, unspecified; D64.9 Anemia, unspecified; B96.4 Proteus (mirabilis) (morganii) as the cause of diseases classified elsewhere; B95.4 Other streptococcus as the cause of diseases classified elsewhere; F14.10 Cocaine abuse, uncomplicated; F11.10 Opioid abuse, uncomplicated; R63.6 Underweight; D72.819 Decreased white blood cell count, unspecified; F15.10 Other stimulant abuse, uncomplicated; Z91.010 Allergy to peanuts; Z91.013 Allergy to seafood; Z87.891 Personal history of nicotine dependence
CPT/HCPCS: 73590; 80048; 80053; 80306; 83605; 85025; 86803; 87070; 87075; 87076; 87077; 87147; 87185; 87186; 87205; 93005; 96365; 99285; 99406